=== PATIENT | male | born 1970 | race Caucasian/White ===

== ENCOUNTER → 2016-11-27 | Outpatient (REF) | payer OTHER ==
[~2016-11-27] MED LIST: No Historical Meds; PERCOCET PO
== END ==
LOC: M SFHCLERA 12:49
PROVIDERS: ATTEND Nurse Practitioner Family
DX: J02.9 Acute pharyngitis, unspecified (principal)

== ENCOUNTER → 2019-03-31 | Outpatient (REF) | payer OTHER ==
[2019-03-31 17:33] LABS: ALBUMIN 3.6 GM/DL (3.2-5.2); ALT/SGPT 45 U/L (12-78); BILIRUBIN,TOTAL 0.2 MG/DL (0.2-1.0); BLOOD UREA NITROGEN 15 MG/DL (7-18); CARBON DIOXIDE LEVEL 27 MEQ/L (21-32); CHLORIDE LEVEL 107 MEQ/L (98-107); CREATININE FOR GFR 0.98 MG/DL (0.70-1.30); GLOMERULAR FILTRATION RATE > 60.0 (>60); GLUCOSE, FASTING 143 MG/DL (70-100); POTASSIUM SERUM 3.9 MEQ/L (3.5-5.1); SODIUM LEVEL 141 MEQ/L (136-145); TOTAL PROTEIN 6.9 GM/DL (6.4-8.2)
[2019-03-31 17:57] LABS: BASO # 0.1 10^3/uL (0.0-0.2); BASO % 1.1 % (0.0-1.0); EOS # 0.4 10^3/uL (0.0-0.50); EOS % 3.9 % (0.0-3.0); HEMATOCRIT 51.1 % (42.0-52.0); HEMOGLOBIN 16.9 g/dl (13.5-17.5); LYMPH # 2.9 10^3/uL (1.5-4.5); LYMPH % 28.8 % (24.0-44.0); MEAN CORPUSCULAR HEMOGLOBIN 29.2 pg (27.0-33.0); MEAN CORPUSCULAR HGB CONC 33.1 g/dl (32.0-36.5); MEAN CORPUSCULAR VOLUME 88.4 fl (80.0-96.0); MONO # 0.5 10^3/uL (0.0-0.8); MONO % 5.1 % (0.0-5.0); NEUTROPHILS # 6.1 10^3/uL (1.8-7.7); NEUTROPHILS % 60.7 % (36.0-66.0); PLATELET COUNT, AUTOMATED 291 10^3/uL (150-450); RED BLOOD COUNT 5.78 10^6/uL (4.30-6.10)
== END ==
LOC: M LAB REF 10:42
PROVIDERS: ATTEND Nurse Practitioner Family
DX: R60.9 Edema, unspecified (principal)

== ENCOUNTER → 2019-03-31 | Outpatient (CLI) | payer OTHER ==
--- NOTE | 2019-04-01 07:50 | REP ---
BILATERAL ANKLES: Four views bilateral ankles performed. There is no acute fracture or dislocation bilaterally. There is moderate spurring of both medial malleoli. The ankle mortise is anatomic bilaterally. There is moderate spurring of both calcanei, posteriorly and inferiorly. IMPRESSION: Bilateral tibial and calcaneal spurring. Electronically Signed by Israel Boland MD 04/01/2019 08:41 A
== END ==
LOC: M RAD 15:09
PROVIDERS: ATTEND Nurse Practitioner Family
DX: M77.31 Calcaneal spur, right foot (principal); M77.32 Calcaneal spur, left foot; M76.41 Tibial collateral bursitis [Pellegrini-Stieda], right leg; M76.42 Tibial collateral bursitis [Pellegrini-Stieda], left leg; M25.571 Pain in right ankle and joints of right foot; M25.572 Pain in left ankle and joints of left foot

== ENCOUNTER → 2019-04-16 | Outpatient (REF) | payer OTHER ==
[2019-04-16 12:28] LABS: CHOLESTEROL RISK RATIO 4.621 (<5)
[2019-04-16 14:01] LABS: HEMOGLOBIN A1c 6.4 %
== END ==
LOC: M SFHCPLAZ 08:57
PROVIDERS: ATTEND Physician Assistant Medical
DX: R73.09 Other abnormal glucose (principal); E78.2 Mixed hyperlipidemia

== ENCOUNTER → 2021-11-23 | Outpatient (REF) | payer OTHER ==
[2021-11-23 16:31] LABS: HEMOGLOBIN 17.1 g/dl (13.5-17.5); MEAN CORPUSCULAR HEMOGLOBIN 29.5 pg (27.0-33.0); MEAN CORPUSCULAR HGB CONC 32.9 g/dl (32.0-36.5); MEAN CORPUSCULAR VOLUME 89.7 fl (80.0-96.0); PLATELET COUNT, AUTOMATED 287 10^3/uL (150-450); WHITE BLOOD COUNT 11.5 10^3/uL (4.0-10.0)
[2021-11-23 17:21] LABS: ALBUMIN 3.6 GM/DL (3.2-5.2); ALT/SGPT 49 U/L (12-78); BILIRUBIN,TOTAL 0.2 MG/DL (0.2-1.0); BLOOD UREA NITROGEN 16 MG/DL (7-18); CALCIUM LEVEL 8.9 MG/DL (8.5-10.1); CARBON DIOXIDE LEVEL 24 MEQ/L (21-32); CHLORIDE LEVEL 110 MEQ/L (98-107); CHOLESTEROL LEVEL 169 MG/DL (<200); CHOLESTEROL RISK RATIO 5.827 (<5); CREATININE FOR GFR 0.81 MG/DL (0.70-1.30); FREE T4 1.14 NG/DL (0.76-1.46); GLOMERULAR FILTRATION RATE > 60.0 (>56); GLUCOSE, FASTING 93 MG/DL (70-100); HDL CHOLESTEROL 29 MG/DL (>40); LDL CHOLESTEROL 89 MG/DL (<100); NON-HDL-C 140 MG/DL; POTASSIUM SERUM 4.2 MEQ/L (3.5-5.1); SODIUM LEVEL 142 MEQ/L (136-145); TOTAL PROTEIN 6.9 GM/DL (6.4-8.2); TRIGLYCERIDES LEVEL 257 MG/DL (<150)
== END ==
LOC: M SFHCADAM 14:41
PROVIDERS: ATTEND Family Medicine
DX: E78.2 Mixed hyperlipidemia (principal); I10 Essential (primary) hypertension; R73.03 Prediabetes; Z12.5 Encounter for screening for malignant neoplasm of prostate; K43.9 Ventral hernia without obstruction or gangrene

== ENCOUNTER → 2022-12-30 | Outpatient (REF) | payer OTHER | LOC: M SFHCADAM 15:57 | PROVIDERS: ATTEND Family Medicine | DX: Z53.9 Procedure and treatment not carried out, unspecified reason (principal) ==

== ENCOUNTER → 2023-01-18 | Outpatient (CLI) | payer OTHER ==
[2023-01-18 08:25] LABS: BASO # 0.1 10^3/uL (0.0-0.2); BASO % 0.8 % (0.0-1.0); EOS # 0.3 10^3/uL (0.0-0.5); HEMATOCRIT 53.5 % (42.0-52.0); HEMOGLOBIN 17.4 g/dl (13.5-17.5); LYMPH # 2.5 10^3/uL (1.5-5.0); LYMPH % 25.5 % (24.0-44.0); MEAN CORPUSCULAR HEMOGLOBIN 29.6 pg (27.0-33.0); MEAN CORPUSCULAR HGB CONC 32.5 g/dl (32.0-36.5); MEAN CORPUSCULAR VOLUME 91.1 fl (80.0-96.0); MONO # 0.5 10^3/uL (0.0-0.8); MONO % 5.5 % (2.0-8.0); NEUTROPHILS # 6.2 10^3/uL (1.5-8.5); NEUTROPHILS % 64.6 % (36.0-66.0); PLATELET COUNT, AUTOMATED 248 10^3/uL (150-450); RED BLOOD COUNT 5.87 10^6/uL (4.30-6.10); WHITE BLOOD COUNT 9.7 10^3/uL (4.0-10.0)
[2023-01-18 08:57] LABS: ALBUMIN 3.5 G/DL (3.2-5.2); ALKALINE PHOSPHATASE 99 U/L (46-116); ALT/SGPT 34 U/L (7.0-40); AST/SGOT 20 U/L (<34); BILIRUBIN,TOTAL 0.7 MG/DL (0.3-1.2); BLOOD UREA NITROGEN 18 MG/DL (9-23); CALCIUM LEVEL 8.6 MG/DL (8.5-10.1); CARBON DIOXIDE LEVEL 25 MMOL/L (20-31); CHLORIDE LEVEL 108 MMOL/L (98-107); CREATININE FOR GFR 0.75 MG/DL (0.70-1.30); GLOMERULAR FILTRATION RATE > 60.0 (>56); GLUCOSE, FASTING 119 MG/DL (60-100); POTASSIUM SERUM 4.3 MMOL/L (3.5-5.1); SODIUM LEVEL 139 MMOL/L (136-145); TOTAL PROTEIN 6.3 G/DL (5.7-8.2)
[2023-01-18 08:59] LABS: FREE T4 1.09 NG/DL (0.89-1.76); THYROID STIMULATING HORMONE 1.652 uIU/ML (0.55-4.78)
[2023-01-18 09:09] LABS: CREATININE, URINE 248.8 MG/DL; MAU/CREAT RATIO 3.2 MCG/MG (0.0-30.0)
== END ==
LOC: M RAD 07:03
PROVIDERS: ATTEND Family Medicine
DX: R06.09 Other forms of dyspnea (principal); F17.210 Nicotine dependence, cigarettes, uncomplicated; M25.551 Pain in right hip; I10 Essential (primary) hypertension; R73.03 Prediabetes; E78.2 Mixed hyperlipidemia; R91.8 Other nonspecific abnormal finding of lung field; R93.6 Abnormal findings on diagnostic imaging of limbs

== ENCOUNTER → 2023-01-27 | Outpatient (CLI) | payer OTHER | LOC: M RAD 14:36 | PROVIDERS: ATTEND Family Medicine | DX: Z12.2 Encounter for screening for malignant neoplasm of respiratory organs (principal); F17.200 Nicotine dependence, unspecified, uncomplicated ==

== ENCOUNTER → 2023-02-17 | Outpatient (CLI) | payer OTHER | LOC: M CARPUL 13:40 | PROVIDERS: ATTEND Family Medicine | DX: R06.09 Other forms of dyspnea (principal) ==

== ENCOUNTER 2023-05-22 16:26 | Emergency (ER) | payer BC, OTHER ==
[~2023-05-22] VITALS: Ht 157.5 cm; Wt 107.2 kg
[2023-05-22 16:27] VITALS: TEMP 97.6
[2023-05-22 21:32] VITALS: BP 159/85; O2SAT 98
[2023-05-23] MEDS ORDERED: AMOXICILLIN 500 MG CAP PO ONE (00:30)
[2023-05-23] MEDS ORDERED: IBUPROFEN 600MG TAB PO ONE (00:30)
[2023-05-23] MEDS ORDERED: IBUP-1022 PO (00:47)
[2023-05-23] MEDS ORDERED: AMOX875T2 PO (00:47)
[2023-05-23] MEDS ORDERED: AUGMENTIN 875 MG TAB PO ONE (00:55)
== END 2023-05-23 01:25 | disposition home or self-care (01) ==
LOC: M ED 16:26
DX: S00.83XA Contusion of other part of head, initial encounter (principal); V00.831A Fall from motorized mobility scooter, initial encounter; Y92.410 Unspecified street and highway as the place of occurrence of the external cause; Z88.6 Allergy status to analgesic agent; Z79.2 Long term (current) use of antibiotics; Z79.899 Other long term (current) drug therapy

== ENCOUNTER → 2023-06-05 | Outpatient (CLI) | payer BC, OTHER ==
[~2023-06-05] MED LIST changes: +AMOX875T2 PO; +IBUP-1022 PO
== END ==
LOC: M SOG 08:33
PROVIDERS: ATTEND Orthopaedic Surgery
DX: M25.551 Pain in right hip (principal)

== ENCOUNTER → 2024-12-09 | Outpatient (CLI) | payer OTHER, SELFPAY ==
[2024-12-09 11:53] LABS: BASO # 0.1 10^3/uL (0.0-0.2); BASO % 0.9 % (0.0-1.0); EOS # 0.3 10^3/uL (0.0-0.5); EOS % 3.7 % (0.0-3.0); HEMATOCRIT 51.2 % (42.0-52.0); HEMOGLOBIN 17.2 g/dl (13.5-17.5); LYMPH # 2.5 10^3/uL (1.5-5.0); LYMPH % 29.7 % (24.0-44.0); MEAN CORPUSCULAR HEMOGLOBIN 30.1 pg (27.0-33.0); MEAN CORPUSCULAR HGB CONC 33.6 g/dl (32.0-36.5); MEAN CORPUSCULAR VOLUME 89.7 fl (80.0-96.0); MONO # 0.5 10^3/uL (0.0-0.8); MONO % 6.1 % (2.0-8.0); NEUTROPHILS # 5.1 10^3/uL (1.5-8.5); NEUTROPHILS % 59.1 % (36.0-66.0); PLATELET COUNT, AUTOMATED 256 10^3/uL (150-450); RED BLOOD COUNT 5.71 10^6/uL (4.30-6.10); WHITE BLOOD COUNT 8.6 10^3/uL (4.0-10.0)
[2024-12-09 12:18] LABS: PSA SCREENING 0.31 NG/ML (< 4.00)
[2024-12-09 12:22] LABS: THYROID STIMULATING HORMONE 2.545 uIU/ML (0.55-4.78)
[2024-12-09 12:23] LABS: ALBUMIN 3.4 G/DL (3.2-5.2); ALKALINE PHOSPHATASE 112 U/L (40-129); ALT/SGPT 29 U/L (7.0-40); AST/SGOT 13 U/L (<34); BILIRUBIN,TOTAL 0.2 MG/DL (0.3-1.2); BLOOD UREA NITROGEN 14 MG/DL (9-23); CALCIUM LEVEL 9.4 MG/DL (8.5-10.1); CARBON DIOXIDE LEVEL 25 MMOL/L (20-31); CHLORIDE LEVEL 107 MMOL/L (98-107); CHOLESTEROL LEVEL 175 MG/DL (<200); CHOLESTEROL RISK RATIO 5.35 (<5); CREATININE FOR GFR 0.67 MG/DL (0.70-1.30); FREE T4 1.29 NG/DL (0.89-1.76); GLOMERULAR FILTRATION RATE > 60.0 (>56); GLUCOSE, FASTING 222 MG/DL (60-100); HDL CHOLESTEROL 32.7 MG/DL (>40); NON-HDL-C 142.3 MG/DL; POTASSIUM SERUM 4.4 MMOL/L (3.5-5.1); SODIUM LEVEL 141 MMOL/L (136-145); TOTAL PROTEIN 6.7 G/DL (5.7-8.2); TRIGLYCERIDES LEVEL 466 MG/DL (<150)
[2024-12-09 12:34] LABS: HEMOGLOBIN A1c 6.9 % (4.0-6.0)
== END ==
LOC: M LAB 11:18
PROVIDERS: ATTEND Family Medicine
DX: B86 Scabies (principal); R73.03 Prediabetes; E78.2 Mixed hyperlipidemia; Z12.5 Encounter for screening for malignant neoplasm of prostate
CPT/HCPCS: 36415; 80053; 80061; 83036; 84439; 84443; 85025; G0103

== ENCOUNTER → 2025-01-31 | Outpatient (CLI) | payer OTHER | LOC: M RAD 16:17 | PROVIDERS: ATTEND Family Medicine | DX: Z12.2 Encounter for screening for malignant neoplasm of respiratory organs (principal); F17.210 Nicotine dependence, cigarettes, uncomplicated ==

== ENCOUNTER → 2025-05-13 | Outpatient (CLI) | payer OTHER ==
[2025-05-13 15:00] LABS: CREATININE, URINE 177.8 MG/DL
[2025-05-13 15:01] LABS: ALT/SGPT 30 U/L (7.0-40); AST/SGOT 18 U/L (<34); CALCIUM LEVEL 9.8 MG/DL (8.5-10.1); CARBON DIOXIDE LEVEL 24 MMOL/L (20-31); CHLORIDE LEVEL 108 MMOL/L (98-107); CHOLESTEROL LEVEL 95 MG/DL (<200); CHOLESTEROL RISK RATIO 3.31 (<5); CREATININE FOR GFR 0.79 MG/DL (0.70-1.30); ESTIMATED AVERAGE GLUCOSE 137.0 MG/DL (60-110); GLOMERULAR FILTRATION RATE > 90.0 (>56); LDL CHOLESTEROL 39.3 MG/DL (<100); MALB URINE SIEMENS 200.0 MG/L; MAU/CREAT RATIO 112.4 MCG/MG (0.0-30.0); NON-HDL-C 66.3 MG/DL; POTASSIUM SERUM 4.2 MMOL/L (3.5-5.1); SODIUM LEVEL 144 MMOL/L (136-145); TRIGLYCERIDES LEVEL 135 MG/DL (<150)
== END ==
LOC: M LAB 13:20
PROVIDERS: ATTEND Family Medicine
DX: E11.59 Type 2 diabetes mellitus with other circulatory complications (principal)